=== PATIENT | female | born 1985 ===

== ENCOUNTER 2023-11-26 08:48 | Outpatient (CLI) | payer OTHER ==
--- NOTE | 2023-11-26 23:24 | Ultrasound Report ---
PROCEDURE: Abdomen Limited INDICATIONS: OBESITY TECHNIQUE: Real-time focused scanning was performed of the abdomen, with image documentation. COMPARISONS: None. FINDINGS: Liver: Liver is normal in size. Diffusely increased liver parenchymal echotexture is seen. Gallbladder: Hyperechoic focus with posterior shadowing is seen in dependent portion of gallbladder l umen measures 1.7 x 1 x 2.1 cm in size. No gallbladder wall thickening or pericholecystic fluid. No s onographic Bruno's sign. Biliary ducts: Intrahepatic bile ducts are non-dilated. Extrahepatic bile duct caliber measures 3 m m. Normal is 6-7 mm or less in diameter, or 10 mm or less post-cholecystectomy. Pancreas: Visualized portions of the pancreas are sonographically normal. Right kidney: Normal in size and echotexture. Right kidney measures 10.4 cm long. No hydronephrosis or nephrolithiasis. No solid masses. No complex renal cystic lesions which require follow-up. IVC: Intrahepatic inferior vena cava is patent. Miscellaneous: No free abdominal fluid. IMPRESSION: 1. Cholelithiasis without sonographic evidence of acute cholecystitis. No biliary ductal dilatation. 2. Hepatic steatosis. No discrete hepatic lesion. Reviewed by: Reddy Jiménez MD on 11/26/2023 11:23 PM PDT Approved by: Reddy Jiménez MD on 11/26/2023 11:23 PM PDT Station ID: [id number]
== END 2023-11-26 08:49 | disposition home or self-care (01) ==
LOC: DI 08:48
PROVIDERS: ATTEND Nurse Practitioner Family
DX: K80.20 Calculus of gallbladder without cholecystitis without obstruction (principal); K76.0 Fatty (change of) liver, not elsewhere classified; Z86.39 Personal history of other endocrine, nutritional and metabolic disease